=== PATIENT | female | born 1970 | race Two or more races ===

== ENCOUNTER 2021-09-29 01:23 | Emergency (ER) | payer OTHER, MEDICAID ==
[~2021-09-29] VITALS: Ht 157.5 cm; Wt 90.4 kg
[2021-09-29 02:44] VITALS: BP 141/71
== END 2021-09-29 03:35 | disposition home or self-care (01) ==
LOC: ER 01:23
DX: U07.1 COVID-19 (principal); R06.00 Dyspnea, unspecified; R07.89 Other chest pain
CPT/HCPCS: 71045; 93005

== ENCOUNTER 2023-08-03 11:53 | Inpatient (IN) | payer OTHER, MEDICAID ==
[~2023-08-03] VITALS: Ht 157.5 cm; Wt 94.6 kg
[2023-08-03 14:03] LABS: Basophils # (auto) 0 10 ^3/uL (0-0.2); Basophils % (auto) 0.4 % (0.0-2.0); Eosinophils # (auto) 0.1 10 ^3/uL (0-0.8); Eosinophils % (auto) 1.9 % (0.0-7.0); Hemoglobin 14.9 g/dL (12.2-16.2); Lymphocytes # (auto) 1.6 10 ^3/uL (0.4-5.4); Lymphocytes % (auto) 34.7 % (10.0-50.0); Mean Corpuscular Hemoglobin 28.7 pg (28.0-32.0); Mean Corpuscular Hgb Conc. 33.2 g/dL (32.0-36.0); Mean Corpuscular Volume 86.4 fL (80.0-100.0); Monocytes # (auto) 0.2 10 ^3/uL (0-1.3); Monocytes % (auto) 5.5 % (0.0-12.0); Neutrophils # (auto) 2.6 10 ^3/uL (1.6-8.6); Neutrophils % (auto) 57.5 % (37.0-80.0); Nucleated Red Blood Cells % 0.1 %; Red Cell Distribution Width 14.4 % (11.8-14.3); White Blood Cell 4.5 10^3/uL (4.4-10.8)
[2023-08-03 14:13] LABS: Chloride 105 mmol/L (98-107); Sodium 136 mmol/L (136-145)
[2023-08-03 14:14] LABS: Anion Gap 5 (5-15); Carbon Dioxide 26 mmol/L (20-30)
[2023-08-03 14:19] LABS: BUN/Creatinine Ratio 9.9 (10.0-20.0); Blood Urea Nitrogen 7 mg/dL (9-23); Glucose 124 mg/dL (74-106)
[2023-08-03] MEDS ORDERED: ACETAMINOPHEN 325 MG TAB PO PRN (19:15)
[2023-08-03] MEDS ORDERED: hydrALAZINE HCL 20 MG/ML VL IV PRN (19:15)
[2023-08-03] MEDS ORDERED: NITROGLYCERIN 0.4 MG SL TAB SL PRN (19:15)
[2023-08-03] MEDS ORDERED: ONDANSETRON HCL 4 MG/2 ML VIAL IV PRN (19:15)
[2023-08-03] MEDS ORDERED: DEXTROSE (50%) 50ML SYRG IV PRN (19:15)
[2023-08-03] MEDS ORDERED: MORPHINE SULFATE INJ 2 MG/ml SYRG IV PRN (19:15)
[2023-08-03 22:52] VITALS: PULSE 69; RESP 20; O2SAT 97
[2023-08-03] MEDS: ACCU-CHEK COMFORT CURVE STRIP VI SCH (23:00)
[2023-08-03] MEDS: InsuLIN REG 1unit/0.01ml Soln (100units/ml) SC SCH (23:00)
[2023-08-03] MEDS: LABETALOL HCL 5 MG/ML 4ML SYRINGE IV ONE (23:22)
[2023-08-04 05:57] VITALS: BP 141/83; PULSE 64; RESP 18; TEMP 98.4; O2SAT 96
[2023-08-04 06:57] LABS: Basophils # (auto) 0 10 ^3/uL (0-0.2); Basophils % (auto) 0.7 % (0.0-2.0); Eosinophils # (auto) 0.1 10 ^3/uL (0-0.8); Eosinophils % (auto) 1.9 % (0.0-7.0); Hematocrit 44.3 % (36.0-46.0); Hemoglobin 14.9 g/dL (12.2-16.2); Lymphocytes # (auto) 1.4 10 ^3/uL (0.4-5.4); Lymphocytes % (auto) 27.3 % (10.0-50.0); Mean Corpuscular Hemoglobin 29.1 pg (28.0-32.0); Mean Corpuscular Hgb Conc. 33.6 g/dL (32.0-36.0); Mean Corpuscular Volume 86.6 fL (80.0-100.0); Monocytes # (auto) 0.3 10 ^3/uL (0-1.3); Monocytes % (auto) 5.7 % (0.0-12.0); Neutrophils # (auto) 3.2 10 ^3/uL (1.6-8.6); Neutrophils % (auto) 64.4 % (37.0-80.0); Nucleated Red Blood Cells % 0.1 %; Red Blood Cells 5.11 10^6/uL (4.0-5.20); Red Cell Distribution Width 14.3 % (11.8-14.3)
[2023-08-04 07:03] LABS: Alanine Aminotransferase 56 U/L (7-40); Albumin 4.4 g/dL (3.2-4.8); Alkaline Phosphatase 94 U/L (46-116); Anion Gap 7 (5-15); Aspartate Aminotransferase 35 U/L (13-40); BUN/Creatinine Ratio 9.1 (10.0-20.0); Bilirubin, Total 1.4 mg/dL (0.2-1.0); Blood Urea Nitrogen 7 mg/dL (9-23); Calcium 9.4 mg/dL (8.5-10.1); Carbon Dioxide 26 mmol/L (20-30); Chloride 103 mmol/L (98-107); Glucose 166 mg/dL (74-106); Potassium 3.7 mmol/L (3.5-5.1); Sodium 136 mmol/L (136-145); Total Protein 7.5 g/dL (5.7-8.2)
[2023-08-04 08:00] VITALS: PULSE 68; RESP 18; O2SAT 98
[2023-08-04 08:34] VITALS: BP 144/74; PULSE 64; RESP 18; TEMP 97.6; O2SAT 98
[2023-08-04] MEDS: hydroCHLOROthiazide 25 MG TAB PO SCH (09:46)
[2023-08-04] MEDS: LISINOPRIL 5 MG TAB PO SCH (09:47)
[2023-08-04] MEDS: DOCUSATE SOD 100 MG CAP PO PRN (09:47)
[2023-08-04] MEDS: ENOXAPARIN SOD 40 MG/0.4 ML SYRINGE SC SCH (09:47)
[2023-08-04] MEDS ORDERED: LISI20TA56 PO (11:46)
[2023-08-04] MEDS ORDERED: METF-489 PO (11:46)
[2023-08-04] MEDS ORDERED: ATOR-507 PO (11:46)
[2023-08-04 12:25] VITALS: BP 117/71; PULSE 73; RESP 18; TEMP 98.2; O2SAT 94
[2023-08-04 13:36] VITALS: PULSE 86; RESP 18; TEMP 98.7; O2SAT 98
== END 2023-08-04 15:00 | disposition home or self-care (01) | DRG 69 ==
LOC: ER 11:53 → TELE 19:05 → TELE-CENTR 08-04 05:40
PROVIDERS: ADMIT Internal Medicine Pulmonary Disease; ATTEND Emergency Medicine
DX: G45.9 Transient cerebral ischemic attack, unspecified (principal); E78.5 Hyperlipidemia, unspecified; E66.9 Obesity, unspecified; I16.0 Hypertensive urgency; E11.42 Type 2 diabetes mellitus with diabetic polyneuropathy; Z90.710 Acquired absence of both cervix and uterus; Z68.38 Body mass index [BMI] 38.0-38.9, adult
CPT/HCPCS: 36415; 80048; 80053; 82962; 84443; 85025; 93306; G0378; J1815; J3490